=== PATIENT | female | born 1980 | race Caucasian/White ===

== ENCOUNTER 2018-10-17 21:14 | Emergency (ER) | payer OTHER ==
[~2018-10-17] VITALS: Ht 165.1 cm; Wt 72.6 kg
[2018-10-17] MEDS ORDERED: XANAX 0.5 MG0.5 MG PO (21:19)
[2018-10-17 21:46] LABS: ABSOLUTE BASOPHILS 0.1 thou/uL (0.0-0.2); ABSOLUTE EOSINOPHILS 0.2 thou/uL (0.0-0.7); ABSOLUTE LYMPHOCYTES 3.1 thou/uL (0.8-5.3); ABSOLUTE MONOCYTES 1.1 thou/uL (0.0-1.2); ABSOLUTE NEUTROPHILS 5.7 thou/uL (1.6-8.1); BASOPHILS 1.2 %; EOSINOPHILS 2.3 %; HEMATOCRIT 41.5 % (37.0-47.0); HEMOGLOBIN 13.8 gm/dL (12.0-15.0); LYMPHOCYTES 30.4 %; MCH 30.6 pg (26.0-34.0); MCHC 33.3 g/dL (28.0-37.0); MCV 91.8 fL (80.0-100.0); MONOCYTES 10.6 %; MPV 8.6 fl. (7.2-11.1); NUCLEATED RBCS 0 /100WBC; PLATELET COUNT* 300 thou/uL (150-400); POLYS 55.5 %; RBC 4.52 mil/uL (4.20-5.00); RDW-CV 12.7 % (10.5-14.5); WBC 10.3 thou/uL (4.0-11.0)
[2018-10-17 21:52] LABS: CALCIUM 9.1 mg/dL (8.5-10.1); CREATININE 0.8 mg/dL (0.6-1.3); POTASSIUM 3.2 mmol/L (3.5-5.1)
[2018-10-17 21:56] LABS: ALBUMIN 4.1 g/dL (3.4-5.0); TOTAL BILIRUBIN 0.3 mg/dL (<0.1-1.0); TOTAL PROTEIN 7.8 g/dL (6.4-8.2)
[2018-10-17 22:12] LABS: URINE BILIRUBIN NEGATIVE (Negative); URINE BLOOD 1+ (Negative); URINE CLARITY CLEAR; URINE COLOR YELLOW; URINE GLUCOSE-RANDOM NEGATIVE (Negative); URINE KETONES NEGATIVE (Negative); URINE LEUKOCYTES-REFLEX 1+ (Negative); URINE NITRITE-REFLEX NEGATIVE (Negative); URINE PROTEIN NEGATIVE (Negative); URINE SPECIFIC GRAVITY <= 1.005 (1.005-1.030); URINE UROBILINOGEN 0.2 E.U./dl (0.2-1.0)
[2018-10-17 22:26] LABS: AMP/METHAMP Negative (Negative); BARBITURATES Negative (Negative); BENZODIAZEPINES Negative (Negative); COCAINE Negative (Negative); METHADONE Negative (Negative); OPIATES Negative (Negative); PCP Negative (Negative); THC Negative (Negative)
[2018-10-17 22:34] LABS: SQUAMOUS >10 Many /LPF (0-3)
[2018-10-17 22:35] LABS: CASTS None Seen /LPF (None Seen); CRYSTALS None Seen /LPF (None Seen); MUCUS None Seen strn/LPF (None Seen); URINE WBC-REFLEX 0-5 Rare /HPF (0-5)
[2018-10-17 22:36] LABS: URINE RBC 0-2 Rare /HPF (0-2)
[2018-10-17] MEDS ORDERED: KEFLEX500 M1 PO (22:58)
[2018-10-17 23:30] VITALS: BP 119/81
--- NOTE | 2018-10-18 14:03 | EKG ---
[place] [address] ELECTROCARDIOGRAM REPORT Name: GUILLERMINA SUBRAMANIAN [id number] Admission: 10/17/18 Attend Phys: Discharge: 10/17/18 Date of : 84 Report #: [id number] THIS REPORT FOR: //name// [facility] ED Test Date: 2018-10-17 Test Time: 21:24:40 Pat Name: GUILLERMINA SUBRAMANIAN Department: Room: Gender: F [employer]: STEPHANIE : 1980 Requested By: Val Hedrick Order Number: [id number] MD: Eleazar Bustamante Measurements Intervals [place] Rate: 83 P: 50 AK: 177 QRS: 49 QRSD: 103 T: 29 QT: 392 QTc: 461 Interpretive Statements Sinus rhythm No previous ECG available for comparison Electronically Signed On 10-18-2018 14:03:20 HORTICULTURAL THERAPIST by Eleazar Bustamante [email or web address] <ELECTRONICALLY SIGNED> By: Eleazar Bustamante MD, [facility] 10/18/18 1403 [id number] 23 Eleazar Bustamante MD, FACC /EPI
== END 2018-10-17 23:30 | disposition home or self-care (01) ==
LOC: M.ERS 21:14
PROVIDERS: Personal Emergency Response Attendant
DX: N39.0 Urinary tract infection, site not specified (principal); E03.9 Hypothyroidism, unspecified; Z88.5 Allergy status to narcotic agent; Z79.899 Other long term (current) drug therapy